=== PATIENT | male | born 1945 | race Caucasian/White ===

== ENCOUNTER 2019-07-01 09:34 | Outpatient (CLI) | payer MEDICARE, OTHER, SELFPAY ==
--- NOTE | 2019-07-01 12:00 | NEURO_ITS ---
Patient Number: [id number] Impression: # Complains of pain in both lower extremities from knee down to ankles. # Fairly symmetrical motor and sensory nerve conduction study including F- waves. # Normal needle/EMG exam with no evidence of neurogenic changes or myotonia. # Clinical correlation recommended. Nerve Conduction Studies Anti Sensory Summary Table Stim Site NR Peak (ms) P-T Amp (?V) Site1 Site2 Delta-P (ms) Dist (cm) Luis (m/s) Left Sup Fibular Anti Sensory (Ant Lat Mall) 14 cm 3.3 14.2 14 cm Ant Lat Mall 3.3 16.0 48 Right Sup Fibular Anti Sensory (Ant Lat Mall) 14 cm 2.9 18.0 14 cm Ant Lat Mall 2.9 16.0 55 Left Sural Anti Sensory (Lat Mall) Calf 3.2 29.2 Calf Lat Mall 3.2 16.0 50 Right Sural Anti Sensory (Lat Mall) Calf 2.9 8.8 Calf Lat Mall 2.9 16.0 55 Motor Summary Table Stim Site NR Onset (ms) O-P Amp (mV) Site1 Site2 Delta-0 (ms) Dist (cm) Luis (m/s) Left Peroneal Motor (Vastus Med) Ankle 5.8 1.3 Popit Ankle 9.0 38.0 42 Popit 14.8 1.0 Right Peroneal Motor (Vastus Med) Ankle 4.7 1.4 Popit Ankle 7.5 39.0 52 Popit 12.2 1.7 Left Tibial Motor (Abd Nolen Brev) Ankle 4.7 3.7 Knee Ankle 8.5 42.0 49 Knee 13.2 3.0 Right Tibial Motor (Abd Nolen Brev) Ankle 5.1 4.2 Knee Ankle 9.6 43.0 45 Knee 14.7 2.9 F Wave Studies NR F-Lat (ms) L-R F-Lat (ms) Left Peroneal (Mrkrs) (EDB) 50.28 0.16 Right Peroneal (Mrkrs) (EDB) 50.44 0.16 Left Tibial (Mrkrs) (Abd Hallucis) 52.78 0.69 Right Tibial (Mrkrs) (Abd Hallucis) 53.47 0.69 EMG Side Muscle Nerve Root Ins Act Fibs Amp Dur Recrt Comment Right AntTibialis Dp Br Fibular L4-5 Nml Nml Nml Nml Nml Right Gastroc Tibial S1-2 Nml Nml Nml Nml Nml Right Fibularis Long Sup Br Fibular L5-S1 Nml Nml Nml Nml Nml Right Flex Dig Long Tibial L5-S2 Nml Nml Nml Nml Nml Right Ext Dig Brev Dp Br Fibular L5, S1 Nml Nml Nml Nml Nml Left AntTibialis Dp Br Fibular L4-5 Nml Nml Nml Nml Nml Left Gastroc Tibial S1-2 Nml Nml Nml Nml Nml Left Fibularis Long Sup Br Fibular L5-S1 Nml Nml Nml Nml Nml Left Flex Dig Long Tibial L5-S2 Nml Nml Nml Nml Nml Left Ext Dig Brev Dp Br Fibular L5, S1 Nml Nml Nml Nml Nml Right QuadratusFem QuadFemoris L4-5, S1 Nml Nml Nml Nml Nml Left QuadratusFem QuadFemoris L4-5, S1 Nml Nml Nml Nml Nml MTDD
== END 2019-07-01 09:35 | disposition home or self-care (01) ==
PROVIDERS: PCP Family Medicine; Visit Provider Physician Assistant Medical
DX: M79.662 Pain in left lower leg (principal); M79.661 Pain in right lower leg
CPT/HCPCS: 95886; 95910

== ENCOUNTER → 2020-01-06 11:05 | Outpatient (CLI) | payer MEDICARE, OTHER, SELFPAY ==
--- NOTE | ~2020-01-06 | XR_ITS ---
EXAMINATION: XR hip RT 2V w AP pelvis DATE: 01/06/2020 11:37 INDICATION: Right hip injury post fall with posterior right hip pain TECHNIQUE: Anteroposterior view of the pelvis and anteroposterior and frog-leg lateral views of the r ight hip were obtained. COMPARISON: 07/14/2014 FINDINGS: Alignment is normal. No fracture or suspected avascular necrosis. There is chondrocalcinosis at both hips. Bilateral hip joint spaces are relatively preserved. Mild osteoarthritis at the bilateral sacra l iliac joints. Unchanged small sclerotic bone island at the right supra-acetabular region. Moderate lumbar spondylosis. Scattered vascular calcifications in the pelvis and proximal thighs. IMPRESSION: 1. No acute osseous abnormality. Reviewed, dictated and finalized at location A.
== END ==
PROVIDERS: PCP Family Medicine; Visit Provider Physician Assistant Medical
DX: S79.911A Unspecified injury of right hip, initial encounter (principal); X58.XXXA Exposure to other specified factors, initial encounter
CPT/HCPCS: 73502

== ENCOUNTER 2020-01-28 01:00 | Outpatient (CLI) | payer MEDICARE, OTHER, SELFPAY ==
[2020-01-28 19:19] LABS: SARS-CoV-2 RNA PCR Negative
== END 2020-01-28 01:01 | disposition home or self-care (01) ==
LOC: ANHCOVIDDT 01:01
PROVIDERS: PCP Family Medicine; Visit Provider Internal Medicine Gastroenterology
DX: Z01.812 Encounter for preprocedural laboratory examination (principal); Z20.828 Contact with and (suspected) exposure to other viral communicable diseases
CPT/HCPCS: 87635; C9803; U0003

== ENCOUNTER 2020-01-30 00:20 | Day surgery (SDC) | payer MEDICARE, OTHER, SELFPAY ==
[2020-01-22 13:55] VITALS: BMI 25.9
[2020-01-30 08:40] VITALS: BP 108/59; PULSE 83; RESP 18; TEMP 36.5; O2SAT 97
[2020-01-30] MEDS: LACTATED RINGERS 1,000 ML 150 ML IV CONT (08:53)
--- NOTE | 2020-01-30 08:54 | P.PNAN_ITS ---
Anes - Initial Pre Proc Eval Procedure: Operation Date: 01/30/20 09:30 Proposed Procedures p Screening Colonoscopy - Rusty Rios MD Date/Time: 01/30/20 08:54 Surgeon: Rusty Rios MD Pre Op Diagnosis: family hx colon CA Patient Data Age: 74 Gender: M Height: 5 ft 7 in Weight: 69.5 kg Last Vital Signs Temp 97.7 F 01/30/20 08:40 Pulse 83 01/30/20 08:40 Resp 18 01/30/20 08:40 BP 108/59 L 01/30/20 08:40 Pulse Ox 97 01/30/20 08:40 Allergies Allergy/AdvReac Type Severity Reaction Status Date / Time No Known Allergies Allergy Verified 01/30/20 08:38 Home Medications Medication Instructions Recorded Confirmed Type escitalopram oxalate 20 mg tablet 10 mg PO DAILY 04/07/19 01/22/20 History omeprazole magnesium 20 mg 20 mg PO DAILY 04/07/19 01/22/20 History tablet,delayed release risperidone 0.5 mg tablet 0.5 mg PO BID 04/07/19 01/22/20 History atorvastatin 40 mg tablet 40 mg PO DAILY #90 tablet 01/05/20 01/22/20 Rx gabapentin 300 mg capsule 300 mg PO BID #180 cap 01/05/20 01/22/20 Rx multivitamin 1 tablet PO DAILY 01/26/20 History psyllium husk 3.4 gram/5.4 gram 1 tbsp PO DAILY 01/26/20 History oral powder Patient hx anesthesia problems: none Family hx anesthesia problems: none PMFSH Past Medical History Medical History (Updated 01/30/20 @ 08:54 by Ashok Caro MD) Anemia GERD (gastroesophageal reflux disease) History of torn meniscus of right knee Mixed hyperlipidemia Pituitary macroadenoma Surgical History Surgical History (Updated 01/26/20 @ 11:43 by Meredith Johnston CMA) Cataracts, bilateral 2011 H/O thumb surgery 2016 H/O total knee replacement 2019 Hemorrhoids THD, History of prostate surgery 2015 History of surgery on wrist History of tremor removed, 2017 Previous back surgery L4-L5 2018 Torn meniscus 2016 Family History Family History (Updated 01/26/20 @ 11:43 by Meredith Johnston CMA) Father Carcinoma of colon Sibling Crohn's disease Other Heart disease Other Heart disease Other Family history of arthritis Social History Social History (Updated 01/26/20 @ 11:44 by Meredith Johnston [facility]) Smoking status: Never smoker Alcohol intake: never Substance use: unknown Living arrangements: with family Gender identity (if verbalized by the patient): Male Spiritual care concerns: No Anes - Eval Final PreProcedure Day of Procedure 01/30/20 08:54 Patient weight: normal Heart: regular rate and rhythm Lungs: clear to auscultation Airway: Mallampati scale class II Neurological: alert and oriented Last oral intake: >/= 8 hours ASA classification: III Emergent: no Anesthetic plan: proceed Anesthesia type and monitoring: general GIVS and standard monitoring Informed Consent: The patient's anesthetic plan and its attendant risks and benefits were discussed with the patient/family/POA. Questions were solicited and answers provided to the satisfaction of the patient/family/POA.
--- NOTE | 2020-01-30 09:10 | PM.HPGS ---
History of Present Illness History of Present Illness Consent: Risks, benefits, and alternatives have been discussed and questions answered. Patient agrees to proceed with procedure. Chief complaint: family hx colon CA Narrative: Buck Villalba is a 74 year old male Here for screening colonoscopy. His father had colon cancer Review of Systems Review of Systems: All systems reviewed & are unremarkable except as noted in HPI and below PMFSH Past Medical History Medical History Anemia GERD (gastroesophageal reflux disease) History of torn meniscus of right knee Mixed hyperlipidemia Pituitary macroadenoma Surgical History Surgical History Cataracts, bilateral 2010 H/O thumb surgery 2016 H/O total knee replacement 2019 Hemorrhoids THD, History of prostate surgery 2015 History of surgery on wrist History of tremor removed, 2017 Previous back surgery L4-L5 2018 Torn meniscus 2016 Family History Family History Father Carcinoma of colon Sibling Crohn's disease Other Heart disease Other Heart disease Other Family history of arthritis Social History Social History Smoking status: Never smoker Alcohol intake: never Substance use: unknown Living arrangements: with family Gender identity (if verbalized by the patient): Male Spiritual care concerns: No Meds Home Medications and Allergies Home Medications Medication Instructions Recorded Confirmed Type escitalopram oxalate 20 mg tablet 10 mg PO DAILY 04/07/19 01/22/20 History omeprazole magnesium 20 mg 20 mg PO DAILY 04/07/19 01/22/20 History tablet,delayed release risperidone 0.5 mg tablet 0.5 mg PO BID 04/07/19 01/22/20 History atorvastatin 40 mg tablet 40 mg PO DAILY #90 tablet 01/05/20 01/22/20 Rx gabapentin 300 mg capsule 300 mg PO BID #180 cap 01/05/20 01/22/20 Rx multivitamin 1 tablet PO DAILY 01/26/20 History psyllium husk 3.4 gram/5.4 gram 1 tbsp PO DAILY 01/26/20 History oral powder Allergies Allergy/AdvReac Type Severity Reaction Status Date / Time No Known Allergies Allergy Verified 01/30/20 08:38 Vital Signs Vital Signs - 24 hr 01/30/20 08:40 Temperature 36.5 C Pulse Rate 83 Respiratory Rate 18 Blood Pressure 108/59 L Pulse Oximetry 97 Exam Resp: Auscultation: clear to auscultation bilaterally Cardio: Rate: regular rate Rhythm: regular rhythm GI: GI Palp: Yes Soft to palpation and No Tenderness to palpation present (GI) Assessment and Plan Assessment and plan (1) Colon cancer screening: Code(s): Z12.11 - Encounter for screening for malignant neoplasm of colon Status: Acute Assessment and Plan: Colonoscopy with possible biopsy or polypectomy or cautery or injection of substances.
[2020-01-30 09:40] VITALS: BP 85/59; PULSE 67; RESP 21; O2SAT 96
[2020-01-30 09:50] VITALS: BP 118/77; PULSE 64; RESP 11; O2SAT 97
[2020-01-30 10:00] VITALS: BP 118/77; PULSE 65; RESP 13; O2SAT 98
== END 2020-01-30 10:12 | disposition home or self-care (01) ==
PROVIDERS: PCP Family Medicine; Visit Provider Internal Medicine Gastroenterology
PROC: 0DJD8ZZ Inspection of Lower Intestinal Tract, Via Natural or Artificial Opening Endoscopic (ICD-10-PCS; CPT 45378; principal; 2020-01-30 09:30)
DX: Z12.11 Encounter for screening for malignant neoplasm of colon (principal); K62.1 Rectal polyp; Z80.0 Family history of malignant neoplasm of digestive organs; D35.2 Benign neoplasm of pituitary gland; E78.2 Mixed hyperlipidemia; K21.9 Gastro-esophageal reflux disease without esophagitis
CPT/HCPCS: 45380; 88305; J2704; J7120

== ENCOUNTER 2020-02-24 09:43 | Outpatient (CLI) | payer MEDICARE, OTHER, SELFPAY ==
--- NOTE | 2020-02-24 09:45 | ECG_ITS ---
Measurements Intervals [place] Rate: 62 P: 41 [place]: 177 QRS: -3 QRSD: 96 T: 23 QT: 398 QTc: 405 Interpretive Statements SINUS RHYTHM DELAYED PRECORDIAL R/S TRANSITION BASELINE ARTIFACT- I, III, AVR, AVL, AVF, V1 BORDERLINE ECG Electronically Signed On 02-24-2020 12:18:15 [employer]ERC[employer] COP by Tae Carrillo D.O.
== END 2020-02-24 09:44 | disposition home or self-care (01) ==
PROVIDERS: PCP Family Medicine; Visit Provider Surgery
DX: E78.00 Pure hypercholesterolemia, unspecified (principal); Z01.818 Encounter for other preprocedural examination; R94.31 Abnormal electrocardiogram [ECG] [EKG]
CPT/HCPCS: 93005

== ENCOUNTER 2020-02-27 01:05 | Outpatient (CLI) | payer MEDICARE, OTHER, SELFPAY ==
[2020-02-27 20:28] LABS: SARS-CoV-2 RNA PCR Negative
== END 2020-02-27 01:06 | disposition home or self-care (01) ==
LOC: ANHCOVIDDT 01:05
PROVIDERS: PCP Family Medicine; Visit Provider Surgery
DX: Z01.812 Encounter for preprocedural laboratory examination (principal); Z20.828 Contact with and (suspected) exposure to other viral communicable diseases
CPT/HCPCS: 87635; C9803; U0003

== ENCOUNTER 2020-03-01 01:05 | Day surgery (SDC) | payer MEDICARE, OTHER, SELFPAY ==
[2020-02-23 10:46] VITALS: BMI 25.8
--- NOTE | 2020-03-01 09:36 | WPDANESEPPF ---
Anes - Initial Pre Proc Eval Procedure: Operation Date: 03/01/20 15:00 Proposed Procedures p Transanal Hemorrhoid Dearterialization - Alejandro Glasgow DO Date/Time: 03/01/20 09:36 Surgeon: Alejandro Glasgow DO Pre Op Diagnosis: Grade II Internal Hemorrhoid Patient Data Age: 74 Gender: M Height: 1.7 m Weight: 74.85 kg Allergies Allergy/AdvReac Type Severity Reaction Status Date / Time No Known Allergies Allergy Verified 02/23/20 10:25 Home Medications Medication Instructions Recorded Confirmed Type escitalopram oxalate 20 mg tablet 20 mg PO DAILY 04/07/19 02/23/20 History omeprazole magnesium 20 mg 20 mg PO DAILY 04/07/19 02/23/20 History tablet,delayed release risperidone 0.5 mg tablet 0.5 mg PO BID 04/07/19 02/23/20 History atorvastatin 40 mg tablet 40 mg PO DAILY #90 tablet 01/05/20 02/23/20 Rx gabapentin 300 mg capsule 300 mg PO BID #180 cap 01/05/20 02/23/20 Rx multivitamin 1 tablet PO DAILY 01/26/20 02/23/20 History psyllium husk 3.4 gram/5.4 gram 1 tbsp PO DAILY 01/26/20 02/23/20 History oral powder ECG: Date of Service: 02/24/20 Procedure(s): CA 12 lead EKG Accession Number(s): [id number] cc: ~ Measurements Intervals [place] Rate: 62 P: 41 HI: 177 QRS: -3 QRSD: 96 T: 23 QT: 398 QTc: 405 Interpretive Statements SINUS RHYTHM DELAYED PRECORDIAL R/S TRANSITION BASELINE ARTIFACT- I, III, AVR, AVL, AVF, V1 BORDERLINE ECG Electronically Signed On 02-24-2020 12:18:15 M[employer]GAGE ACCOUNTING CLERK by Tae Carrillo D.O. Dictated By: Tae Carrillo DO 02/24/20 1015 Patient hx anesthesia problems: none Family hx anesthesia problems: none PMFSH Past Medical History Medical History Anemia GERD (gastroesophageal reflux disease) History of torn meniscus of right knee Mixed hyperlipidemia Pituitary macroadenoma Surgical History Surgical History Cataracts, bilateral 2010 H/O thumb surgery 2016 H/O total knee replacement 2019 Hemorrhoids THD, History of prostate surgery 2015 History of surgery on wrist History of tremor removed, 2017 Previous back surgery L4-L5 2018 Torn meniscus 2016 Family History Family History Father Carcinoma of colon Sibling Crohn's disease Other Heart disease Other Heart disease Other Family history of arthritis Social History Social History Smoking packs per day: 0.5 Smoking cigarettes per day: 10.0 Years smoked: 3 Smoking pack-years: 1.50 Smoking status: Former smoker Tobacco type: cigarettes Smoking end date: 04/23/69 Alcohol intake: never Substance use: unknown Living arrangements: with family Gender identity (if verbalized by the patient): Male Spiritual care concerns: No Anes - Eval Final PreProcedure Day of Procedure 03/01/20 09:36 Patient weight: overweight Heart: regular rate and rhythm Lungs: clear to auscultation and normal air movement Airway: Mallampati scale class II Neurological: alert and oriented Last oral intake: >/= 8 hours ASA classification: III Emergent: no Anesthetic plan: proceed Anesthesia type and monitoring: general LMA and ETT Informed Consent: The patient's anesthetic plan and its attendant risks and benefits were discussed with the patient/family/POA. Questions were solicited and answers provided to the satisfaction of the patient/family/POA.
[2020-03-01 14:00] VITALS: BP 125/75; PULSE 62; RESP 18; TEMP 36.8; O2SAT 97
[2020-03-01] MEDS: LACTATED RINGERS 1,000 ML 30 ML IV CONT (14:00)
[2020-03-01] MEDS: KETOROLAC 15 MG/ML VIAL (*BKC) IV PUSH (14:07)
[2020-03-01] MEDS: ACETAMINOPHEN 500 MG TABLET 1000 MG PO (14:08)
--- NOTE | 2020-03-01 16:09 | WPDHPUPDATE1 ---
History and Physical Update Update Date/Time: 03/01/20 16:09 History and Physical has been reviewed, including an updated exam of the patient. There are NO changes in the patient's condition. Risks, benefits, and alternatives have been discussed and questions answered. Patient agrees to proceed with procedure.
[2020-03-01] MEDS: ceFAZolin 2 GM/D5W 50 ML 2 GM/50 ML BAG IVPB (16:27)
[2020-03-01 17:30] VITALS: BP 99/57; PULSE 61; RESP 12; O2SAT 96
--- NOTE | 2020-03-01 17:41 | P.OP_ITS ---
Procedure Note - Detailed Date of procedure: 03/01/20 Pre-op diagnosis: Grade II Internal Hemorrhoid Post-op diagnosis: same Procedure performed: Multiple hemorrhoid ligation (Transanal hemorrhoid dearterialization procedure) Anal proctoplasty Description of procedure: * Procedure as well as risks, benefits, and alternatives were discussed with the patient. Written consent was obtained and placed in chart prior to procedure. Patient was brought back to surgical suite. He was placed supine hospital stretcher. He was then repositioned into prone florence-knife position and her buttocks were taped apart on each side. IV sedation was administered by the Anesthesia Department. His perirectal area was prepped and draped in sterile fashion using Betadine prep. Time-out was done to confirm patient and procedure. Digital rectal exam was initially performed. A Hill-Cintron anoscope was then inserted in the anal rectal canal was carefully inspected. Prolapsing internal hemorrhoids were identified, but no other significant abnormalities were noted. The THD Doppler anoscope was then inserted. The pulsatile hemorrhoidal vessel was initially identified in the 1 o'clock location. A 2 0 Vicryl [id number]-pz-[id number] suture was placed at this location and the suture was tied down to ligate the vessel. This was then repeated in the 3, 5, 7, 9, and 11 o'clock positions. All Doppler signals were easily identified in each location. After completing this portion of the procedure, I then examined the anoderm and anal mucosa for any persistent prolapsing tissue. A pexy was performed in the right posterior position. A 2 0 Vicryl [id number]-[id number] suture was again placed into the hemorrhoidal bundle and then the suture was run distally along the rectal mucosa down to just above the dentate line. The suture was then tied down in place to pexy the mucosa up into the rectal canal. One final inspection was made around the anal rectal canal and no other abnormalities were noted. 0.5% bupivacaine with epinephrine was infiltrated locally around the anus. The patient was then awakened from anesthesia and transferred to recovery. Anesthesia: MAC and local (0.25% bupivicaine with epi) Surgeon: Alejandro Glasgow DO Estimated blood loss (mL): 5 Drains: No Packing: No Pathology: none sent Complications: No immediate complications Condition: stable Disposition: same day Findings: * Multiple prolapsing internal hemorrhoids identified. THD procedure performed in the typical locations at 1, 3, 5, 7, 9, and 11 o'clock positions. Mucosal procto plasty performed in the right posterior region. No other masses or abnormalities were noted.
[2020-03-01 17:54] VITALS: BP 144/63; PULSE 59; RESP 14
== END 2020-03-01 18:12 | disposition home or self-care (01) ==
PROVIDERS: PCP Family Medicine; Visit Provider Surgery
PROC: (CPT 46948; principal; 2020-03-01 15:00)
DX: K64.1 Second degree hemorrhoids (principal); D50.9 Iron deficiency anemia, unspecified; E78.2 Mixed hyperlipidemia
CPT/HCPCS: 46945; A9270; J0690; J1100; J1885; J2405; J2704; J3010; J7120

== ENCOUNTER → 2020-11-12 15:43 | Outpatient (CLI) | payer MEDICARE, SELFPAY ==
--- NOTE | ~2020-11-12 | XR_ITS ---
XR chest 2V DATE: 11/12/2020 16:00 INDICATION: Shortness of breath TECHNIQUE: 2 views COMPARISON: 12/19/2018 PA and lateral chest FINDINGS: Normal heart size. No hilar or mediastinal enlargement. Aortic arch calcification. No pulmonary infiltrate or consolidation, pleural effusion or pulmonary vascular congestion or pneumo thorax. Diffuse osteopenia. IMPRESSION: No active cardiopulmonary disease or significant change since 12/19/2018 Reviewed, dictated and finalized at location A. IMPRESSION: No active cardiopulmonary disease or significant change since 2018
== END ==
PROVIDERS: PCP Family Medicine; Visit Provider Physician Assistant Medical
DX: R06.02 Shortness of breath (principal)
CPT/HCPCS: 71046

== ENCOUNTER → 2021-01-03 14:07 | Outpatient (CLI) | payer MEDICARE, SELFPAY ==
--- NOTE | ~2021-01-03 | XR_ITS ---
. EXAMINATION: XR hand LT min 3V INDICATION: Left hand pain TECHNIQUE: Three views of the left hand are obtained. COMPARISON: 05/06/2018 FINDINGS: No acute fracture is identified. There is advanced osteoarthritis at the triscaphe, first c arpometacarpal, and second proximal interphalangeal joints. There is moderate osteoarthritis at the r adioscaphoid joint and in multiple interphalangeal joints. Calcified atherosclerosis is noted. IMPRESSION: 1. 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 Reviewed, dictated and finalized at location A.
== END ==
PROVIDERS: PCP Family Medicine; Visit Provider Nurse Practitioner Family
DX: M19.042 Primary osteoarthritis, left hand (principal)
CPT/HCPCS: 73130

== ENCOUNTER → 2021-02-02 13:14 | Outpatient (CLI) | payer MEDICARE, SELFPAY ==
--- NOTE | ~2021-02-02 | DEXA_ITS ---
Bone Density Report Name: Buck Villalba Age: 75 Sex: Male Ethnicity: White Date of : 1945 Indication: screening for osteoporosis; parental hip fracture; prior fracture; Referring Provider: Elizabeth Holcomb Study: Bone densitometry was performed. Exam Date: February 02, 2021 Accession number: [id number] Bone Density: Region BMD T-score Z-score Classification AP Spine (L1, L4) 0.846 -2.2 -1.2 Osteopenia Femoral Neck (Left) 0.597 -2.4 -1.1 Osteopenia Total Hip (Left) 0.808 -1.5 -0.7 Osteopenia Femoral Neck (Right) 0.532 -2.9 -1.6 Osteoporosis Total Hip (Right) 0.701 -2.2 -1.4 Osteopenia Total Hip Mean 0.755 -1.9 -1.1 Osteopenia World Health Organization criteria for BMD impression classify patients as: Normal (T-score at or above -1.0), Osteopenia (T-score between -1.0 and -2.5), or Osteoporosis (T-score at or below -2.5). 10-year Fracture Risk: FRAX not reported because: Some T-score for Spine Total or Hip Total or Femoral Neck at or below -2.5 Clinical Information Provided by Patient: Has had a low trauma fracture Parent has had a hip fracture Patient maximum height was 68 No regular weight bearing exercise Drinks caffeinated beverages Impression: The patient has established osteoporosis, based on the Right Femoral Neck T-score and the existence of a prior fracture. The patient has risk factors, including: parental hip fracture, previous fracture. Discussion: HIGH RISK OF FRACTURE. BONE DENSITY IS UNDESIRABLY LOW AT ONE OR MORE SKELETAL SITES, CONSISTENT WITH OSTEOPOROSIS. This patient's lowest T-score, in a patient who has previously fractured, meets the World Health Organization's (WHO) criteria for severe osteoporosis. In untreated patients, the risk of osteoporotic fracture increases approximately two-fold for each 1.0 SD decrease in T-score. Low bone density is not the only risk factor for fracture; also consider factors such as patient's age, frailty or poor health, risk of falling, risk of injury, previous osteoporotic fracture, family history of osteoporosis, cigarette smoking, low body weight, etc. Not everyone with low bone mineral density has osteoporosis; osteomalacia and other metabolic bone disorders should also be considered. Patients who have osteoporosis should be evaluated for specific diseases and conditions (secondary causes) that may cause or contribute to bone loss. The National Osteoporosis Foundation (NOF) recommends pharmacologic intervention for men with BMD at this level (a T-score of -2.5 or below). The patient should follow a healthful lifestyle (good nutrition with adequate calcium and vitamin D, and appropriate weight-bearing exercise). Follow-Up: Consider repeating this study in 2 years to reassess this patient's status, or sooner if there is some new clinical indication.
== END ==
PROVIDERS: PCP Family Medicine; Visit Provider Physician Assistant Medical
DX: M85.88 Other specified disorders of bone density and structure, other site (principal); M85.852 Other specified disorders of bone density and structure, left thigh; M85.851 Other specified disorders of bone density and structure, right thigh; M81.0 Age-related osteoporosis without current pathological fracture
CPT/HCPCS: 77080

== ENCOUNTER → 2021-09-14 14:38 | Outpatient (CLI) | payer MEDICARE, SELFPAY ==
--- NOTE | ~2021-09-14 | XR_ITS ---
XR lumbar spine 2-3V 09/14/2021 15:16 Indication: Low back pain Procedure: 3 views lumbar spine Comparison: Findings: There is a new superior endplate compression fracture of L2, although age-indeterminate. Th ere is disc narrowing at all lumbar levels. There is degenerative retrolisthesis at L2-3 and anteroli sthesis at L4-5. There is multilevel facet hypertrophy of the mid and lower lumbar spine. Osteopenia. There is levoscoliosis. Impression: 1: Age-indeterminate superior endplate compression fracture of L2, although new compared with 05/09/19 study. Consider correlation with CT or MRI. 2: Moderate lumbar spondylosis with levoscoliosis. Reviewed, dictated and finalized at location A. Impression: 1: Age-indeterminate superior endplate compression fracture of L2, although new compared with 05/09/2018 study. Consider correlation with CT or MRI. 2: Moderate lumbar spondylosis with levoscoliosis.
== END ==
PROVIDERS: PCP Family Medicine; Visit Provider Physician Assistant Medical
DX: M47.896 Other spondylosis, lumbar region (principal); S32.020A Wedge compression fracture of second lumbar vertebra, initial encounter for closed fracture; X58.XXXA Exposure to other specified factors, initial encounter
CPT/HCPCS: 72100

== ENCOUNTER 2022-02-28 13:34 | Outpatient (CLI) | payer MEDICARE, SELFPAY ==
--- NOTE | ~2022-02-28 | DEXA_ITS ---
Bone Density Report Name: SATISH JONES Age: 76 Sex: Male Ethnicity: White Date of : 1945 Indication: screening for osteoporosis; parental hip fracture; prior fracture; Referring Provider: ISIAH LUNA Study: Bone densitometry was performed. Exam Date: February 28, 2022 Accession number: [id number] Bone Density: Region BMD T-score Z-score Classification AP Spine(L1, L4) 0.910 -1.6 -0.5 Osteopenia Femoral Neck (Left) 0.652 -2.0 -0.7 Osteopenia Total Hip (Left) 0.819 -1.4 -0.6 Osteopenia Femoral Neck (Right) 0.556 -2.7 -1.4 Osteoporosis Total Hip (Right) 0.714 -2.1 -1.3 Osteopenia Total Hip Mean 0.767 -1.8 -1.0 Osteopenia World Health Organization criteria for BMD impression classify patients as: Normal (T-score at or above -1.0), Osteopenia (T-score between -1.0 and -2.5), or Osteoporosis (T-score at or below -2.5). 10-year Fracture Risk: FRAX not reported because: Some T-score for Spine Total or Hip Total or Femoral Neck at or below -2.5 Treated for osteoporosis Clinical Information Provided by Patient: Have had a previous hip or vertebral fracture Has had a low trauma fracture Parent has had a hip fracture Is being treated for osteoporosis Has used the following medications: Fosamax (i.e. alendronate), Vitamin D Patient maximum height was 69 No regular weight bearing exercise Impression: The patient has established osteoporosis, based on the Right Femoral Neck T-score and the existence of a prior fracture. The patient has risk factors, including: parental hip fracture, previous fracture. Discussion: It is important to ask patients whether they are taking their medications and to encourage continued and appropriate compliance with their osteoporosis therapies to reduce fracture risk. It is also important to review their risk factors and encourage appropriate calcium and vitamin D intakes, exercise, fall prevention and other lifestyle measures. Follow-Up: Consider repeating this study in 2 years to reassess this patient's status, or sooner if there is some new clinical indication. Reported by: COLIN on 02/28/2022 2:03:00 PM. Reviewed, dictated and finalized at location AStephania ROBINS
== END 2022-02-28 13:35 | disposition home or self-care (01) ==
PROVIDERS: PCP Family Medicine; Visit Provider Physician Assistant Medical
DX: M81.0 Age-related osteoporosis without current pathological fracture (principal); S32.020A Wedge compression fracture of second lumbar vertebra, initial encounter for closed fracture; X58.XXXA Exposure to other specified factors, initial encounter; M85.88 Other specified disorders of bone density and structure, other site; M85.852 Other specified disorders of bone density and structure, left thigh; M85.851 Other specified disorders of bone density and structure, right thigh
CPT/HCPCS: 77080

== ENCOUNTER 2022-06-14 13:25 | Outpatient (CLI) | payer MEDICARE, SELFPAY | END 2022-06-14 13:26 | disposition home or self-care (01) | LOC: ANHAUDIO 13:26 | PROVIDERS: PCP Family Medicine; Visit Provider Physician Assistant Medical | DX: H90.3 Sensorineural hearing loss, bilateral (principal) | CPT/HCPCS: 92557; 92567 ==

== ENCOUNTER 2023-02-13 08:15 | Outpatient (CLI) | payer MEDICARE, SELFPAY ==
[2023-02-13 08:27] LABS: Basophils Absolute Auto 0.1 K/mm3 (0.0-0.1); Basophils Percent Auto 0.9 % (0.2-1.2); Eosinophils Absolute Auto 0.4 K/mm3 (0-0.3); Hematocrit 39.4 % (42.0-52.0); Hemoglobin 13.3 g/dL (14.0-18.0); Immature Granulocyte Absolute 0.02 K/mm3 (0.00-0.031); Immature Granulocyte Percent A 0.3 % (0-0.5); Lymphocytes Absolute Auto 2.79 K/mm3 (0.9-3.2); Mean Corpuscular HGB Conc 33.8 g/dl (32-36); Mean Corpuscular Hemoglobin 29.7 pg (26-34); Mean Corpuscular Volume 87.9 fl (80-100); Mean Platelet Volume 8.4 fl (7.4-10.4); Monocytes Absolute Auto 0.8 K/mm3 (0.1-0.6); Monocytes Percent Auto 10.1 % (2.6-8.5); Neutrophils Absolute Auto 3.7 K/mm3 (1.3-6.7); Neutrophils Percent Auto 47.7 % (45.5-73.1); Platelet Count Result 318 k/mm3 (150-375); Red Blood Count 4.48 M/mm3 (4.6-6.20); Red Cell Distribution Width 13.3 % (11.5-14.5); White Blood Count 7.8 K/mm3 (4.5-10.0)
[2023-02-13 11:33] LABS: Alanine Aminotransferase 35 U/L (6-50); Albumin Level 4.1 g/dL (3.5-5.1); Alkaline Phosphatase 78 U/L (38-126); Anion Gap 5 mmol/L (8-16); Aspartate Amino Transferase 32 U/L (17-59); Bilirubin,Total 0.7 mg/dL (0.2-1.3); Blood Urea Nitrogen 12 mg/dL (9-20); Calcium 8.7 mg/dL (8.4-10.2); Carbon Dioxide 26 mmol/L (22-30); Chloride 99 mmol/L (98-107); Cholesterol 148 mg/dL (0-200); Estimated Glomerular Filt Rate > 60; Glucose 100 mg/dL (65-110); HDL Direct 63 mg/dL; Potassium 3.8 mmol/L (3.4-5.0); Sodium 130 mmol/L (137-145); Triglycerides 90 mg/dL (<150)
[2023-02-13 11:45] LABS: LDL Cholesterol Direct 63 mg/dL
[2023-02-13 12:04] LABS: Prostate Specific Antigen 3.3 ng/mL (< OR = 4.0); Thyroid Stimulating Hormone 0.228 uIU/mL (0.465-4.680)
== END 2023-02-13 08:16 | disposition home or self-care (01) ==
PROVIDERS: Physician Assistant Medical; PCP Family Medicine; Visit Provider Internal Medicine Hematology & Oncology
DX: E87.1 Hypo-osmolality and hyponatremia (principal); D50.9 Iron deficiency anemia, unspecified; E78.2 Mixed hyperlipidemia; Z12.5 Encounter for screening for malignant neoplasm of prostate
CPT/HCPCS: 36415; 80053; 80061; 84153; 84443; 85025; G0103

== ENCOUNTER 2023-03-13 08:31 | Outpatient (CLI) | payer MEDICARE, SELFPAY ==
[2023-03-13 08:56] LABS: Basophils Absolute Auto 0.1 K/mm3 (0.0-0.1); Basophils Percent Auto 0.9 % (0.2-1.2); Eosinophils Absolute Auto 0.3 K/mm3 (0-0.3); Eosinophils Percent Auto 3.9 % (0-4.4); Hematocrit 40.4 % (42.0-52.0); Hemoglobin 13.3 g/dL (14.0-18.0); Immature Granulocyte Absolute 0.01 K/mm3 (0.00-0.031); Immature Granulocyte Percent A 0.1 % (0-0.5); Lymphocytes Absolute Auto 2.51 K/mm3 (0.9-3.2); Lymphocytes Percent Auto 36.2 % (18.3-44.2); Mean Corpuscular HGB Conc 32.9 g/dl (32-36); Mean Corpuscular Hemoglobin 29.2 pg (26-34); Mean Corpuscular Volume 88.6 fl (80-100); Mean Platelet Volume 8.5 fl (7.4-10.4); Monocytes Absolute Auto 0.7 K/mm3 (0.1-0.6); Monocytes Percent Auto 9.7 % (2.6-8.5); Neutrophils Absolute Auto 3.4 K/mm3 (1.3-6.7); Neutrophils Percent Auto 49.2 % (45.5-73.1); Platelet Count Result 280 k/mm3 (150-375); Red Blood Count 4.56 M/mm3 (4.6-6.20); Red Cell Distribution Width 13.2 % (11.5-14.5); White Blood Count 6.9 K/mm3 (4.5-10.0)
[2023-03-13 10:34] LABS: Alanine Aminotransferase 40 U/L (6-50); Albumin Level 3.9 g/dL (3.5-5.1); Alkaline Phosphatase 86 U/L (38-126); Anion Gap 10 mmol/L (8-16); Aspartate Amino Transferase 32 U/L (17-59); Bilirubin,Total 0.7 mg/dL (0.2-1.3); Blood Urea Nitrogen 13 mg/dL (9-20); Calcium 8.9 mg/dL (8.4-10.2); Carbon Dioxide 27 mmol/L (22-30); Chloride 99 mmol/L (98-107); Estimated Glomerular Filt Rate > 60; Glucose 99 mg/dL (65-110); HDL Direct 55 mg/dL; Potassium 3.8 mmol/L (3.4-5.0); Sodium 136 mmol/L (137-145); Triglycerides 82 mg/dL (<150)
[2023-03-13 10:44] LABS: LDL Cholesterol Direct 63 mg/dL
[2023-03-13 10:58] LABS: Cholesterol 141 mg/dL (0-200)
[2023-03-13 11:04] LABS: Prostate Specific Antigen 3.3 ng/mL (< OR = 4.0); Thyroid Stimulating Hormone 0.401 uIU/mL (0.465-4.680)
[2023-03-13 17:43] LABS: Free T4 Free Thyroxine 1.52 ng/mL (0.78-2.19)
== END 2023-03-13 08:32 | disposition home or self-care (01) ==
LOC: ANHLAB 08:33
PROVIDERS: Physician Assistant Medical; PCP Family Medicine; Visit Provider Internal Medicine Hematology & Oncology
DX: E87.1 Hypo-osmolality and hyponatremia (principal); D50.9 Iron deficiency anemia, unspecified; R79.89 Other specified abnormal findings of blood chemistry; Z12.5 Encounter for screening for malignant neoplasm of prostate; E78.2 Mixed hyperlipidemia
CPT/HCPCS: 36415; 80053; 80061; 84153; 84439; 84443; 85025; G0103

== ENCOUNTER 2023-11-20 13:34 | Outpatient (CLI) | payer MEDICARE, SELFPAY ==
--- NOTE | ~2023-11-20 | XR_ITS ---
[id number] Ordering provider: Elizabeth Holcomb, [facility] History: . R29.818 - Other symptoms and signs involving the nervous ... . Comparison: None. FINDINGS: VERTEBRAL BODIES: Normal height and alignment. No visible fracture or subluxation. The dens is intact . Minimal anterolisthesis at the level of C2-C3. DISK SPACES: Narrowing of the disc C3-C4, C4-C5, C5-C6 and C6-C7. Multilevel uncovertebral joint oste oarthritic changes. PARASPINOUS SOFT TISSUES: No prevertebral soft tissue swelling. IMPRESSION: No acute osseous abnormality cervical spine. Reviewed, dictated and finalized at location A.
== END 2023-11-20 13:35 ==
PROVIDERS: PCP Family Medicine; Visit Provider Physician Assistant Medical
DX: R29.818 Other symptoms and signs involving the nervous system (principal); R29.898 Other symptoms and signs involving the musculoskeletal system
CPT/HCPCS: 72040